=== PATIENT | female | born 1975 | race Caucasian/White ===

== ENCOUNTER 2022-03-20 15:38 | Emergency (ER) | payer OTHER ==
[2022-03-20 15:50] VITALS: BP 154/97; PULSE 83; TEMP 98; BMI 37.8
[2022-03-20 16:31] LABS: BASO % 0.4 % (0-2.0); EOS % 1.3 % (0-4.5); HEMATOCRIT 41.4 % (32.4-45.2); HEMOGLOBIN 13.8 GM/dL (10.7-15.3); LYMPH % 17.5 % (8-40); MCH 32.5 pg (25.7-33.7); MCHC 33.3 g/dl (32.0-36.0); MEAN CELL VOLUME 97.7 fl (80-96); MEAN PLT VOLUME 7.1 fl (7.5-11.1); MONO % 7.4 % (3.8-10.2); NEUT % 73.4 % (42.8-82.8); PLATELET COUNT 343 10^3/uL (134-434); RBC 4.24 M/mm3 (3.60-5.2); RDW 14.5 % (11.6-15.6); WHITE BLOOD COUNT 8.9 K/mm3 (4.0-10.0)
[2022-03-20 16:41] LABS: INR 0.99 (0.83-1.09); PROTHROMBIN TIME (PATIENT) 11.4 SEC (9.7-13.0)
[2022-03-20 16:43] LABS: ACTIVATED PTT 31.2 SECONDS (25.2-36.5)
[2022-03-20 16:59] LABS: ALBUMIN 4.5 g/dl (3.4-5.0); BLOOD UREA NITROGEN 8.6 mg/dL (7-18); CALCIUM 9.4 mg/dL (8.5-10.1)
[2022-03-20 17:03] LABS: CREATININE 0.6 mg/dL (0.55-1.3)
[2022-03-20 17:04] LABS: BILIRUBIN,TOTAL 0.6 mg/dL (0.2-1); TOT PROT 7.8 g/dl (6.4-8.2)
[2022-03-20] MEDS ORDERED: LORazepam 0.5 MG TABLET PO ONE (17:08)
[2022-03-20] MEDS ORDERED: LORazepam 0.5 MG TABLET ONE (17:12)
[2022-03-20] MEDS ORDERED: KETOROLAC TROMETHAMINE 30 MG/1 ML VIAL ONE (17:35)
[2022-03-20] MEDS ORDERED: LIDOCAINE 5% TOPICAL PATCH ONE (17:36)
[2022-03-20] MEDS ORDERED: diazePAM 2 MG TABLET ONE (17:37)
== END 2022-03-20 18:55 | disposition home or self-care (01) ==
LOC: JER 15:38
PROC: 3E0333Z Introduction of Anti-inflammatory into Peripheral Vein, Percutaneous Approach (ICD-10-PCS; principal; 2022-03-20)
DX: R41.82 Altered mental status, unspecified (principal)
CPT/HCPCS: 36415; 70450-TC; 71045-TC-FY; 80053; 80061; 82962; 84484; 85025; 85610; 85730; 93005; 93010; 99285-25

== ENCOUNTER 2022-04-26 23:08 | Emergency (ER) | payer OTHER ==
[2022-04-26 23:17] VITALS: TEMP 98.6; BMI 37.8
[2022-04-27 00:34] VITALS: PULSE 74; RESP 18
[2022-04-27] MEDS ORDERED: ACETAMINOPHEN 500 MG TABLET (FP) PO ONE (00:41)
[2022-04-27] MEDS ORDERED: ACETAMINOPHEN 325 MG TABLET (FP) ONE (00:45)
[2022-04-27] MEDS ORDERED: VALSARTAN 40 MG TABLET PO ONE (01:59)
[2022-04-27] MEDS ORDERED: VALSARTAN 80 MG TABLET ONE (02:03)
[2022-04-27 02:08] VITALS: BP 166/120
== END 2022-04-27 02:10 | disposition home or self-care (01) ==
LOC: JER 23:08
DX: I10 Essential (primary) hypertension (principal)
CPT/HCPCS: 93005; 93010; 99283-25

== ENCOUNTER 2023-11-16 21:07 | Emergency (ER) | payer OTHER ==
[2023-11-16 21:10] VITALS: BP 116/84; PULSE 76; RESP 20; TEMP 97.6; BMI 37.8
== END 2023-11-17 00:57 | disposition home or self-care (01) ==
LOC: JER 21:07
DX: R51.9 Headache, unspecified (principal); I10 Essential (primary) hypertension
CPT/HCPCS: 93005; 93010; 99283-25

== ENCOUNTER 2024-07-19 10:52 | Emergency (ER) | payer OTHER ==
[2024-07-19 10:58] VITALS: BP 101/79; PULSE 66; RESP 18; TEMP 98.3; BMI 35.7
[2024-07-19 12:45] LABS: BASO % 2.2 % (0-2.0); EOS % 6.9 % (0-4.5); HEMATOCRIT 34.6 % (32.4-45.2); HEMOGLOBIN 11.4 GM/dL (10.7-15.3); LYMPH % 25.5 % (8-40); MCH 30.2 pg (25.7-33.7); MCHC 33.1 g/dl (32.0-36.0); MEAN CELL VOLUME 91.3 fl (80-96); MEAN PLT VOLUME 7.1 fl (7.5-11.1); MONO % 12.5 % (3.8-10.2); NEUT % 52.9 % (42.8-82.8); PLATELET COUNT 268 10^3/uL (134-434); RBC 3.79 M/mm3 (3.60-5.2); RDW 13.8 % (11.6-15.6)
[2024-07-19 13:12] LABS: POTASSIUM 4.3 mmol/L (3.5-5.1)
[2024-07-19 13:15] LABS: ALBUMIN 3.2 g/dl (3.4-5.0); BLOOD UREA NITROGEN 11.1 mg/dL (7-18); CALCIUM 9.1 mg/dL (8.5-10.1)
[2024-07-19 13:18] LABS: CREATININE 0.5 mg/dL (0.55-1.3)
[2024-07-19 13:19] LABS: BILIRUBIN,TOTAL 0.6 mg/dL (0.2-1)
[2024-07-19 13:21] LABS: TOT PROT 6.3 g/dl (6.4-8.2)
== END 2024-07-19 13:48 | disposition home or self-care (01) ==
LOC: JER 10:52
DX: R07.2 Precordial pain (principal)
CPT/HCPCS: 36415; 71046-TC-FY; 80053; 84484; 85025; 93005; 93010; 99285-25